=== PATIENT | male | born 2000 | race African-American/Black ===

== ENCOUNTER 2021-04-17 12:10 | Emergency (ER) | payer OTHER, SELFPAY ==
[2021-04-17 12:31] VITALS: BP 123/71; PULSE 77; RESP 16; TEMP 36.9; O2SAT 99
--- NOTE | 2021-04-17 12:51 | ED.URI ---
HPI - URI/Sore Throat General Chief Complaint: Upper Respiratory Infection Stated Complaint: runny nose,cough,chest dutch,fatigue Time Seen by Provider: 04/17/21 12:30 Source: patient and RN notes reviewed Mode of arrival: ambulatory Limitations: no limitations History of Present Illness HPI Narrative: Patient presents today with a 2 to 3-day history of rhinorrhea, sore throat, mild cough and chest congestion. Denies fever, shortness of breath, ear pain. He has been taking chlortabs without relief. Currently rates his sore throat 05/17. MD elicited complaint: cough and rhinorrhea Related Data Home Medications Medication Instructions Recorded Confirmed No Home Medications 04/17/21 04/17/21 Allergies Allergy/AdvReac Type Severity Reaction Status Date / Time No Known Allergies Allergy Verified 04/17/21 12:33 Review of Systems Review of Systems: CONSTITUTIONAL: Denies body aches, fever, chills, or sweats. EYES: Denies visual changes, redness, or discharge. ENT: Denies congestion, or otalgia.+ Sore throat, rhinorrhea CARDIOVASCULAR: Denies chest pain, palpitations, or edema. RESPIRATORY: Denies dyspnea.+ Cough, chest congestion GASTROINTESTINAL: Denies abdominal pain, nausea, vomiting, or diarrhea. GENITOURINARY: Denies dysuria or hematuria. SKIN: Denies rash, itching, or wounds. MUSCULOSKELETAL: Denies back pain, joint pain, or myalgia. NEUROLOGIC: Denies headache, numbness, tingling, or weakness. PSYCH: Denies depression or anxiety. PMFSH Comments At time of signature, I have reviewed and agree with nursing past medical, surgical, social and family history unless otherwise noted. Please see nursing chart for further information. There is no relevant family history pertinent to the presenting complaint Exam Narrative: GENERAL: Well-appearing, well-nourished, and in no acute distress. HEAD: Normocephalic, atraumatic. EYES: EOMI. No redness or drainage. Conjunctivae normal. ENT: Mucous membranes pink and moist. Nares congested. No rhinorrhea. TMs normal bilaterally. Throat normal. Uvula midline. NECK: Normal AROM. Supple. No lymphadenopathy. CHEST: No respiratory distress. Clear to auscultation. HEART: Regular rate and rhythm. No murmur appreciated. Normal peripheral pulses. EXTREMITIES: Normal range of motion. No edema. SKIN: Warm, dry, no rash. Capillary refill normal. Normal skin turgor. NEURO: No focal deficits. Alert and oriented x3. Gait steady. PSYCH: Normal affect. No signs of depression or anxiety. Course Vital Signs Vital signs: Vital Signs Temperature 98.5 F 04/17/21 12:31 Pulse Rate 77 04/17/21 12:31 Respiratory Rate 16 04/17/21 12:31 Blood Pressure 123/71 04/17/21 12:31 Pulse Oximetry 99 04/17/21 12:31 Temperature 98.5 F 04/17/21 12:31 Pulse Rate 77 04/17/21 12:31 Respiratory Rate 16 04/17/21 12:31 Blood Pressure 123/71 04/17/21 12:31 Pulse Oximetry 99 04/17/21 12:31 Reviewed. Pt has been instructed to follow up with his PCP regarding his elevated blood pressure today. MDM - URI/Sore Throat Differential Diagnosis Differential diagnosis: Likely upper respiratory infection, viral infection, bronchitis, pharyngitis and other (Strep throat) Lab Data Attestation: I reviewed the patient's lab results. Labs: Strep Screen Presumptive Negative *(Reference Range: Negative)* Critical Care Time Critical Care Time Critical Care Time: No Discharge Plan Discharge Clinical Impression: Upper respiratory infection Qualifiers: URI type: unspecified URI Qualified Code(s): J06.9 - Acute upper respiratory infection, unspecified Patient Disposition: Home, Self-Care Condition: Stable Instructions: Upper Respiratory Infection (DC) Additional Instructions: Your rapid strep swab was negative today at [facility]. You will be notified in a few days if the culture comes back positive for
== END 2021-04-17 12:58 | disposition home or self-care (01) ==
PROVIDERS: Emergency Provider Nurse Practitioner
DX: J06.9 Acute upper respiratory infection, unspecified (principal)
CPT/HCPCS: 87081; 87880; 99213; G0463

== ENCOUNTER 2021-08-23 14:14 | Emergency (ER) | payer OTHER, SELFPAY ==
[2021-08-23 14:19] VITALS: BP 132/77; PULSE 76; RESP 16; TEMP 36.6; O2SAT 100
--- NOTE | 2021-08-23 14:29 | ED.GENADULT ---
HPI - General Adult General Chief complaint: Back Pain/Injury Stated complaint: NECK/UPPER BACK PAIN Time Seen by Provider: 08/23/21 14:29 Source: patient, RN notes reviewed and old records reviewed Mode of arrival: ambulatory Limitations: no limitations History of Present Illness HPI narrative: 20-year-old male presents Express care with complaints of right posterior lateral neck pain and some right upper back pain since yesterday after playing basketball. Patient denies falling or any known injury to the area of complaint.Patient has full range of motion of neck with some discomfort when he turns his neck to the right, denies any radiation of pain into the arms or hands. Patient states that he must of twisted wrong while playing basketball. He voices no acute pain and denies any tingling or numbness to his arms or hands with strong pulses present to arms bilaterally.Patient has not taken any Tylenol or Ibuprofen for his discomfort today. MD complaint: right lateral posterior neck pain and right upper back pain Onset (ago): day(s) (1) Location: neck (right lateral) and back (upper right back) Radiation: non-radiation Severity scale (1-10): 7 Quality: aching Treatments prior to arrival: none and other (took dose of Tylenol yesterday) Related Data Allergies Allergy/AdvReac Type Severity Reaction Status Date / Time No Known Allergies Allergy Verified 04/17/21 12:33 Review of Systems Review of Systems: CONSTITUTIONAL: Denies fever, chills, or sweats. EYES: Denies visual changes, redness, or discharge. ENT: Denies rhinorrhea, congestion, sore throat, or otalgia. CARDIOVASCULAR: Denies chest pain, palpitations, or edema. RESPIRATORY: Denies cough or dyspnea. GASTROINTESTINAL: Denies abdominal pain, nausea, vomiting, or diarrhea. GENITOURINARY: Denies dysuria or hematuria. SKIN: Denies rash or itching. MUSCULOSKELETAL: Positive for right lateral neck and right upper back pain, no other joint pain, or myalgia. NEUROLOGIC: Denies headache, numbness, or weakness. PSYCHIATRIC: Denies anxiety or depression. All systems reviewed & are unremarkable except as noted in HPI and below PMFSH Past Medical History Medical History (Updated 08/23/21 @ 14:54 by Jennifer Rodriguez NP) No pertinent past medical history Surgical History Surgical History (Updated 08/23/21 @ 14:54 by Jennifer Rodriguez NP) No history of previous surgery Social History Social History (Updated 08/23/21 @ 14:55 by Jennifer Rodriguez NP) Smoking status: Never smoker Alcohol intake: unknown Substance use: unknown Living arrangements: with roommate(s) Occupation/Education: student Gender identity (if verbalized by the patient): Male Comments At time of signature, agree with nursing past medical, surgical, social and family history. There is no relevant family history pertinent to the presenting complaint Exam Narrative: GENERAL: Well-appearing, well-nourished, and in no acute distress. HEAD: Normocephalic, atraumatic. EYES: PERRLA and EOMI. ENT: Nares clear, no rhinorrhea or epistaxis. Mucous membranes moist.TM's normal with good light reflex, throat pink with no lesions or exudates, no tonsil swelling NECK: Supple.no lymphadenopathy. pain to right lateral posterior neck area will full ROM CHEST: Clear to auscultation. No respiratory distress.SAO2 100% on room air. HEART: Regular rate and rhythm. No murmur heard. Normal peripheral pulses. ABDOMEN: Soft, nontender, nondistended, normal active bowel sounds. EXTREMITIES: Normal range of motion. 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 Neck has full mobility and sensation and circulation intact to upper extremities. SKIN: Warm, dry, no rash. NEURO: No focal deficits. Alert and oriented x3. Course Course Level of Care: Express Care Visit Medical Decision Making Differen
== END 2021-08-23 14:52 | disposition home or self-care (01) ==
PROVIDERS: Emergency Provider Registered Nurse
DX: S16.1XXA Strain of muscle, fascia and tendon at neck level, initial encounter (principal); S29.012A Strain of muscle and tendon of back wall of thorax, initial encounter; X58.XXXA Exposure to other specified factors, initial encounter; Y93.64 Activity, baseball
CPT/HCPCS: 99213; G0463

== ENCOUNTER 2022-05-23 15:11 | Emergency (ER) | payer OTHER, SELFPAY ==
--- NOTE | ~2022-05-23 | XR_ITS ---
[id number] 05/23/2022 16:09 Indication: Neck pain. Procedure: 3 views cervical spine Comparison: No prior studies for comparison. Findings: Reversal of cervical lordosis. Vertebral body heights are maintained. No fracture or trauma tic malalignment. No prevertebral soft tissue abnormality. Lung apices are normal. Impression: 1: No acute abnormality of the cervical spine. Reviewed, dictated and finalized at location A. [facility] [employer] Impression: 1: No acute abnormality of the cervical spine.
[2022-05-23 15:26] VITALS: BP 129/96; PULSE 91; RESP 16; TEMP 37.7; O2SAT 100
--- NOTE | 2022-05-23 16:12 | ED.GENADULT ---
HPI - General Adult General Chief complaint: Neck Pain/Injury Stated complaint: rt side neck pain Source: patient Mode of arrival: ambulatory Limitations: no limitations History of Present Illness HPI narrative: Patient present for evaluation of neck pain for last 3 days. He indicates he was lying on a bed and rocked backwards onto the occipital region of his head. He then attempted to accelerate forward and jump onto his feet. He injured his neck in the process. Now has 8/10 pain in the posterior neck. No radicular component. No paresthesias. He tried taking some ibuprofen for his symptoms without considerable improvement thereafter. No additional complaints or concerns. Related Data Allergies Allergy/AdvReac Type Severity Reaction Status Date / Time No Known Allergies Allergy Verified 05/23/22 15:28 Review of Systems Review of Systems: CONSTITUTIONAL: Denies fever, chills, or sweats. EYES: Denies visual changes, redness, or discharge. ENT: Denies rhinorrhea, congestion, sore throat, or otalgia. CARDIOVASCULAR: Denies chest pain, palpitations, or edema. RESPIRATORY: Denies cough or dyspnea. GASTROINTESTINAL: Denies abdominal pain, nausea, vomiting, or diarrhea. GENITOURINARY: Denies dysuria or hematuria. SKIN: Denies rash or itching. MUSCULOSKELETAL: Reports neck pain. Denies back pain NEUROLOGIC: Denies headache, numbness, dizziness, or weakness. PSYCHIATRIC: Denies anxiety or depression. PMFSH Past Medical History Medical History No pertinent past medical history Surgical History Surgical History No history of previous surgery Family History Family History Mother Family history non-contributory Social History Social History Smoking status: Never smoker Alcohol intake: current Alcohol use details: social Substance use: never Gender identity (if verbalized by the patient): Male Spiritual care concerns: No Exam Narrative: GENERAL: Well-appearing, well-nourished, and in no acute distress. HEAD: Normocephalic, atraumatic. EYES: PERRLA and EOMI. ENT: Nares clear, no rhinorrhea or epistaxis. Mucous membranes moist. Oropharynx without tonsillar hypertrophy exudate or other lesions. Bilateral TMs pearly land nonbulging NECK: Supple. No adenopathy or masses. No carotid bruits or JVD. No tenderness in midline or paraspinous muscles of cervical spine or over trapezius muscles CHEST: Clear to auscultation. No respiratory distress. No wheezes rales or rhonchi HEART: Regular rate and rhythm. No murmur heard. Normal peripheral pulses. ABDOMEN: Soft, nontender, nondistended, normal active bowel sounds. EXTREMITIES: Normal range of motion. No edema. SKIN: Warm, dry, no rash. NEURO: No focal deficits. Alert and oriented x3. PSYCH: Normal mood and affect. Course Course Emergency Course: This is a 21-year-old male who presented for evaluation of neck pain. X-ray was negative for fracture. Exam is consistent with strain. Continue to use ibuprofen. Warm moist heat may help. Will give him a prescription for Flexeril. Follow up with primary this week. Go to ER for worsening symptoms. Pt in agreement with plan of care. Level of Care: Express Care Visit Vital Signs Vital signs: Vital Signs Temperature 37.7 C H 05/23/22 15:26 Pulse Rate 91 05/23/22 15:26 Respiratory Rate 16 05/23/22 15:26 Blood Pressure 129/96 H 05/23/22 15:26 Pulse Oximetry 100 05/23/22 15:26 Temperature 37.7 C H 05/23/22 15:26 Pulse Rate 91 05/23/22 15:26 Respiratory Rate 16 05/23/22 15:26 Blood Pressure 129/96 H 05/23/22 15:26 Pulse Oximetry 100 05/23/22 15:26 Medical Decision Making Vital Signs Vital Signs: Vital Signs Temperature 37.
== END 2022-05-23 16:41 | disposition home or self-care (01) ==
PROVIDERS: Emergency Provider Nurse Practitioner
DX: S16.1XXA Strain of muscle, fascia and tendon at neck level, initial encounter (principal); W06.XXXA Fall from bed, initial encounter
CPT/HCPCS: 72040; 99213; G0463

== ENCOUNTER 2025-02-03 11:22 | Emergency (ER) | payer OTHER, SELFPAY ==
[2025-02-03 11:29] VITALS: BP 144/81; PULSE 92; RESP 16; TEMP 36.2; O2SAT 100
--- NOTE | 2025-02-03 11:39 | ED_ITS ---
HPI - Abdominal Pain General Stated Complaint: Stomach Pain Source: patient and RN notes reviewed Mode of arrival: ambulatory Limitations: no limitations History of Present Illness HPI narrative: Patient is a 24-year-old male who presents to the [facility] with complaints of nausea and vomiting that started on . Patient states that after work he went home and vomited on . He went back to work on Monday, and when he got home he had another episode of vomiting. He states that he felt chills and fatigued on Monday. Patient states that over the weekend he had some left-sided abdominal cramping. He states that he has not had any episodes of vomiting since Monday. He denies diarrhea. States that his last bowel movement was today and normal for him. He denies recent fevers. Related Data Allergies Allergy/AdvReac Type Severity Reaction Status Date / Time No Known Allergies Allergy Verified 05/23/22 15:28 Review of Systems Review of Systems: CONSTITUTIONAL: Denies fever, chills, or sweats. EYES: Denies visual changes, redness, or discharge. ENT: Denies otalgia and sore throat CARDIOVASCULAR: Denies chest pain, palpitations, or edema. RESPIRATORY: Denies cough or dyspnea. GASTROINTESTINAL: Reports abdominal pain, nausea, vomiting. GENITOURINARY: Denies dysuria or hematuria. SKIN: Denies rash or itching. MUSCULOSKELETAL: Denies back pain, joint pain, or myalgia. NEUROLOGIC: Denies headache, numbness, or weakness. Pertinent positives per HPI. [facility] Past Medical History Medical History No pertinent past medical history Surgical History Surgical History No history of previous surgery Family History Family History Mother Family history non-contributory Social History Social History Smoking status: Never smoker Alcohol intake: current Alcohol use details: social Substance use: never Living arrangements: with roommate(s) Occupation/Education: student Gender identity (if verbalized by the patient): Male Spiritual care concerns: No Comments At the time of my signature, I reviewed and agree with the nursing past medical, surgical, social, and family history. There is no relevant family history pertinent to the patient complaint. Exam Narrative: GENERAL: This is a well-nourished, well-developed patient, in no apparent distress. HEAD: normocephalic, atraumatic. EYES: PERRL. Sclera clear/white. Vision is grossly intact. EARS: External ears normal, auditory canals clear and without drainage, TMs normal without perforation. Hearing grossly intact. NOSE: External nose normal with no obvious nasal discharge, nares without redness, no rhinorrhea. THROAT: Mucous membranes moist, posterior pharynx clear. NECK: Neck supple, non-tender without lymphadenopathy, masses or thyromegaly. CARDIOVASCULAR: Regular rate and rhythm without murmurs, gallops, or rubs. RESPIRATORY: Clear to auscultation. Breath sounds equal bilaterally. No wheezes, rales, or rhonchi. GASTROINTESTINAL: Abdomen soft, non-tender, nondistended. Bowel sounds are active. No hepato-splenomegaly, or palpable masses. No guarding. SKIN: warm, intact with no suspicious lesions or rash, good texture and turgor. NEURO: awake, alert, and oriented to person, place and time. There were no obvious focal neurologic abnormalities. Course Course Level of Care: Express Care Visit Vital Signs Vital signs: Vital Signs Temperature 97.1 F L 02/03/25 11:29 Pulse Rate 92 02/03/25 11:29 Respiratory Rate 16 02/03/25 11:29 Blood Pressure 144/81 H 02/03/25 11:29 Pulse Oximetry 100 02/03/25 11:29 Oxygen Delivery Room Air 02/03/25 11:29 Temperature 97.1 F L 02/03/25 11:29 Pulse Rate 92 02/03/25 11:29 Respiratory Rate 16 02/03/25 11:29 Blood Pressure 144/81 H 02/03/25 11:29 Pulse Oximetry 100 02/03/25 11:29 Oxygen Delivery Room Air 02/03/25 11:29 Reviewed MDM - Abdominal Pain MDM Narrative Medical decision making narrative: You've been diagnosed with a viral illness that would not require antibiotics at this time. Take the Zofran ODT at home as directed for nausea and get plenty of fluids. You may take Bentyl for abdominal cramping. If you would like to eat food, you should follow the BRAT diet (bananas, rice, applesauce, and toast, or things of the like). If you develop any new or worsening symptoms, you should go to the emergency dept without hesitation. 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 Differential Diagnosis Differential diagnosis: Likely abdominal pain, constipation, gastroenteritis and other ( dehydration) Critical Care Time Critical Care Time Critical Care Time: No Discharge Plan Discharge Clinical Impression: Viral gastroenteritis Patient Disposition: Home Condition: Stable Instructions: Gastroenteritis (ED) Additional Instructions: You've been diagnosed with a viral illness that would not require antibiotics at this time. Take the Zofran ODT at home as directed for nausea and get plenty of fluids. You may take Imodium for diarrhea and the Bentyl for abdominal cramping. If you would like to eat food, you should follow the BRAT diet (bananas, rice, applesauce, and toast, or things of the like). If you develop any new or worsening symptoms, you should go to the emergency dept without hesitation. 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 Patient Language: Malay Prescriptions: New ondansetron 4 mg tablet,disintegrating 4 mg PO Q8H PRN (Reason: nausea and vomiting) Qty: 10 0RF dicyclomine 10 mg capsule 10 mg PO BID PRN (Reason: abdominal pain) Qty: 20 0RF No Action cyclobenzaprine 10 mg tablet 10 mg PO TID PRN (Reason: muscle spasm) Qty: 12 0RF Follow-up/Referrals: PHYSICIAN,ASSISTANT CORPORATE SECRETARY [Primary Care Provider, Internal Medicine] Time of Disposition: 11:51
== END 2025-02-03 11:55 | disposition home or self-care (01) ==
PROVIDERS: Emergency Provider Nurse Practitioner
DX: A08.4 Viral intestinal infection, unspecified (principal)
CPT/HCPCS: 99213; G0463